=== PATIENT | female | born 1990 | race Caucasian/White ===

== ENCOUNTER 2016-10-27 13:30 | Emergency (ER) | payer OTHER ==
[2016-10-27 13:46] VITALS: BP 137/80; PULSE 104; TEMP 98.4; BMI 27.1
--- NOTE | 2016-10-27 14:54 | PDOC ---
History of Present Illness - General Chief Complaint: Allergic Reaction Stated Complaint: ALLERGIC REACTION-RASH Time Seen by Provider: 10/27/16 14:41 Past History - Past Medical History Allergies/Adverse Reactions: Allergies Allergy/AdvReac Type Severity Reaction Status Date / Time vancomycin Allergy Mild Hives Verified 10/27/16 13:38 Home Medications: Ambulatory Orders Cephalexin Monohydrate [Keflex -] 500 mg PO BID #13 capsule 10/27/16 Suicide Attempt (Hx): No Other medical history: DENIES. - Reproductive History (#): 3 Para: 2 - Psycho/Social/Smoking Cessation Hx Anxiety: Yes Suicidal Ideation: No Smoking Status: No Smoking History: Never smoked Have you smoked in the past 12 months: No Number of Cigarettes Smoked Daily: 0 Hx Alcohol Use: No Drug/Substance Use Hx: No Substance Use Type: None *Physical Exam - Vital Signs Last Vital Signs Temp Pulse Resp BP Pulse Ox 98.4 F 104 H 19 137/80 100 10/27/16 13:38 10/27/16 13:38 10/27/16 13:38 10/27/16 13:38 10/27/16 13:38 *DC/Admit/Observation/Transfer Diagnosis at time of Disposition: UTI (urinary tract infection) Qualifiers: Urinary tract infection type: acute cystitis Hematuria presence: with hematuria Qualified Code(s): N30.01 - Acute cystitis with hematuria - Discharge Dispostion Disposition: HOME Condition at time of disposition: Good Admit: No - Referrals Referrals: Haley Marquez MD [Staff Physician] - - Patient Instructions Printed Discharge Instructions: DI for Urinary Tract Infection (UTI) Additional Instructions: You have an urinary tract infection. You were prescribed Keflex. You got your first dose in the ED today. Take your second pill for today before bed. Otherwise, take the medication as prescribed. Take the entire bottle of medication even if you feel better and do not share your medication with anyone. Do not take anyone else's medication. Stop taking this medication if you experience hives, shortness of breath or feel like your throat is closing and seek medical attention. Drink plenty of fluids including cranberry juice. Follow up with your primary care doctor in one week. Return to the ED if you have worsening pain, signs of allergic reaction as listed above, fevers, chills, back pain, or any changes in your symptoms.
[2016-10-27 15:33] LABS: URINE APPEARANCE CLEAR; URINE BILIRUBIN NEGATIVE (NEGATIVE); URINE BLOOD 1+ (NEGATIVE); URINE COLOR LTYELLOW; URINE GLUCOSE (UA) NEGATIVE (NEGATIVE); URINE KETONE NEGATIVE (NEGATIVE); URINE NITRITE NEGATIVE (NEGATIVE); URINE PROTEIN NEGATIVE (NEGATIVE); URINE UROBILINOGEN NEGATIVE mg/dL (0.2-1.0)
[2016-10-27 15:35] LABS: URINE LEUK ESTERASE 1+ (NEGATIVE)
[2016-10-27 15:37] LABS: URINE MUCUS RARE; URINE RBC 3 /hpf (0-3); URINE WBC 33 /hpf (3-5)
[2016-10-27] MEDS ORDERED: diphenhydrAMINE HCL 25 MG CAPSULE (FP) PO ONE (15:57)
[2016-10-27] MEDS ORDERED: CEPHALEXIN MONOHYDRATE 500 MG CAPSULE (UD) PO ONE (15:59)
[2016-10-27] MEDS ORDERED: CEPHALEXIN MONOHYDRATE 500 MG CAPSULE (UD) ONE (16:04)
== END 2016-10-27 16:52 | disposition home or self-care (01) ==
LOC: JER 13:30 → JERFT 13:30
DX: N30.01 Acute cystitis with hematuria (principal)
CPT/HCPCS: 81003; 81015; 87086; 99281-25

== ENCOUNTER 2017-07-03 11:00 | Inpatient (IN) | payer OTHER ==
[2017-09-02] MEDS ORDERED: CITRIC ACID/SODIUM CITRATE 30 ML UNIT-DOSE CUP PO ONE (08:12)
[2017-09-02] MEDS ORDERED: ELECTROLYTE-148 SOLN 500 ML IV SCH (08:15)
[2017-09-02] MEDS: ELECTROLYTE-148 SOLN 1,000 ML IV SCH (08:40)
[2017-09-02 08:46] VITALS: BMI 30.9
--- NOTE | 2017-09-02 09:15 | HP ---
Past Medical History - Primary Care Physician PCP:: Abad Soto - Admission Chief Complaint: 39 weeks, previous c/s . request for sterlization, GDM History of Present Illness: 27 yo f , edc by sono 09/08/17 , 39.1 weeks, with 2 previous c/s, requesting repeat c/s and BTl , aware BTL is permenant and has small failure risks and risks of ectopic, ,risks of bleeding ,infection, injury to bowel and bladder , anesthesia risks discussed History Source: Patient - Past Medical History ...: 4 ...Para: 2 ...Term: 2 ...: 0 ...Spon : 1 ...Induced : 0 ...Multiple Gestation: 0 ...LMP: 11/15/15 ... Weeks Gestation by Dates: 41.5 ...EDC by Dates: 08/21/17 ...EDC by Sono: 09/08/17 Endocrine: Yes: Diabetes Mellitus (GDM, diet controlled) - Past Surgical History Past Surgical History: Yes: Hx Myomectomy: No Hx Transabdominal Cerclage: No - Smoking History Smoking history: Never smoked Have you smoked in the past 12 months: No Aproximately how many cigarettes per day: 0 - Alcohol/Substance Use Hx Alcohol Use: No - Social History Usual Living Arrangement: Yes: With Spouse History of Recent Travel: No Home Medications - Allergies Allergies/Adverse Reactions: Allergies Allergy/AdvReac Type Severity Reaction Status Date / Time vancomycin Allergy Severe Hives Verified 09/02/17 08:21 - Home Medications Home Medications: Ambulatory Orders Cephalexin Monohydrate [Keflex -] 500 mg PO BID #13 capsule 10/27/16 Review of Systems - Review of Systems Constitutional: reports: No Symptoms Eyes: reports: No Symptoms HENT: reports: No Symptoms Neck: reports: No Symptoms Cardiovascular: reports: No Symptoms Respiratory: reports: No Symptoms Gastrointestinal: reports: No Symptoms Genitourinary: reports: No Symptoms Breasts: reports: No Symptoms Reported Musculoskeletal: reports: No Symptoms Integumentary: reports: No Symptoms Neurological: reports: No Symptoms Endocrine: reports: No Symptoms Hematology/Lymphatic: reports: No Symptoms Psychiatric: reports: No Symptoms Physical Exam - Maternity Vital Signs: Vital Signs Temperature 97.7 F 09/02/17 08:30 Pulse Rate 87 09/02/17 08:30 Respiratory Rate 20 09/02/17 08:30 Blood Pressure 123/86 09/02/17 08:30 O2 Sat by Pulse Oximetry (%) Constitutional: Yes: Well Nourished, No Distress, Calm Eyes: Yes: WNL, Conjunctiva Clear, EOM Intact HENT: Yes: WNL, Atraumatic, Normocephalic Neck: Yes: WNL, Supple, Trachea Midline Cardiovascular: Yes: WNL, Regular Rate and Rhythm Breast(s): Yes: WNL - Abdominal Exam/OB Fundal Height: 40 Number of Fetuses: Single Presentation: Vertex Contractions: No Intensity: Unaware Monitor Mode: External Heart Rate Location: [facility] Category: I Accelerations: Uniform Decelerations: None - Vaginal Exam/OB Vaginal Bleediing: No Speculum Exam: No Dilatation (cm): closed Effacement (%): 0 Amniotic Membrane Status: Intact Presentation: Vertex/Position Station: -3 - Physical Exam Edema: Yes Edema: LLE: Trace, RLE: Trace Deep Tendon Reflex Grade: Normal +2 Psychiatric: Yes: WNL Hemorrhage Risk Assessment - Risk Factors Medium Risk Factors: Yes: Prior , uterine surgery,or multiple laparotomies Risk Score: 2 Risk Level: High Risk Problem List - Problems (1) with 39 completed weeks gestation Code(s): Z3A.39 - 39 WEEKS GESTATION OF (2) Previous section complicating Code(s): O34.219 - MATERNAL CARE FOR UNSP TYPE SCAR FROM PREVIOUS DEL (3) Admission for sterilization Code(s): Z30.2 - ENCOUNTER FOR STERILIZATION (4) Gestational diabetes mellitus Code(s): O24.419 - GESTATIONAL DIABETES MELLITUS IN , UNSP CONTROL Qualifiers: Gestational diabetes mellitus control: diet-controlled Trimester: third trimester Qualified Code(s): O24.410 - Gestational diabetes mellitus in , diet controlled Assessment/Plan admit for repeat c/s and BTL, risks discussed
[2017-09-02] MEDS ORDERED: ceFAZolin SODIUM 1 GM VIAL ONE ×2 (10:02→23:26)
[2017-09-02] MEDS ORDERED: morphine SULFATE/Preservative Free 0.5 MG/ML (1cc Syringe) ONE (10:03)
[2017-09-02] MEDS ORDERED: BUPIVACAINE 0.75% IN DEXTROSE/PF 2ML AMPULE NR ONE (10:03)
[2017-09-02] MEDS ORDERED: BENZOCAINE 28 GM HEMORRHOIDAL OINTMENT PR PRN (11:49)
[2017-09-02] MEDS ORDERED: oxyCODONE HCL 5 MG TABLET PO PRN ×2 (11:49)
[2017-09-02] MEDS ORDERED: IBUPROFEN 800 MG/8 ML IJ IVPB PRN (11:49)
[2017-09-02] MEDS ORDERED: diphenhydrAMINE HCL 25 MG CAPSULE (FP) PO PRN (11:49)
[2017-09-02] MEDS ORDERED: WITCH HAZEL 50% (TUCKS) 40 PAD/JAR PAD TP PRN (11:49)
[2017-09-02] MEDS ORDERED: METHYLERGONOVINE MALEATE 0.2 MG/1 ML AMP IM PRN (11:49)
[2017-09-02] MEDS ORDERED: BENZOCAINE 20% 57 GM BOTTLE TP PRN (11:49)
--- NOTE | 2017-09-02 11:52 | SURG ---
Surgery Set Up And Charger Note Set Up And Charger: Chalo Chapman PA-C Date of Service: 09/02/17 Diagnosis: repeat Cesarian section Procedure: Repeat Cesarian section and tubal ligation I was present for the entirety of the operative procedure. For further detail, please refer to operative report.
[2017-09-02] MEDS ORDERED: ONDANSETRON 4 MG/2 ML VIAL IVPUSH PRN (11:53)
[2017-09-02] MEDS ORDERED: morphine SULFATE/Preservative Free 0.5 MG/ML (1cc Syringe) SPIN ONE (11:53)
[2017-09-02] MEDS ORDERED: OXYTOCIN 20 UNITS in 0.9% NS 1,000 ML IV SCH (12:00)
--- NOTE | 2017-09-02 13:57 | OP ---
DATE OF OPERATION: 09/02/2017 PREOPERATIVE DIAGNOSES: , 39 weeks. Two previous sections. Request of repeat section and tubal ligation. POSTOPERATIVE DIAGNOSES: , 39 weeks. Two previous sections. Request of repeat section and tubal ligation. PROCEDURES: Repeat low segment, transverse section. SURGEON: Lana Soto MD PLANNING RN: , EZRA ANESTHESIA: Spinal anesthesia, ESTIMATED BLOOD LOSS: 500 mL. OPERATION: The patient was taken to the operating room and had adequate spinal anesthesia. Abdomen and perineum were prepped and draped. Pfannenstiel abdominal skin incision was made over the previous incision. Abdominal wall was cut [id number]. Anterior peritoneum was exposed and incised. Upon entering the abdominal cavity, low uterine segment was identified and uterovesical fold of peritoneum established. Bladder was pushed down. A low-transverse uterine incision was made. Incision extended laterally. Amniotic sac was entered, clear fluid. Live baby girl was delivered. Apgars 9 and 9. No complication. Placenta was delivered manually. Uterine cavity was cleaned of all remaining tissue. Uterine incision was closed in two layers, first layer with 0 Biosyn continuous suture, the second layer with 0 Biosyn imbricating the first layer. Bladder flap was closed with 0 Biosyn continuous suture. Then, right tube was grasped with a Livier clamp. Right tube was doubly tagged with 2-0 plain. Portion of tube was removed and endosalpinx cauterized. The same procedure repeated for opposite tube. No active bleeding was seen. All the lap, and sponge, and instruments were correct. Pelvic cavity several times irrigated and then peritoneum was closed with 0 Biosyn continuous suture. Muscle was brought together with interrupted suture of 0 Biosyn. Fascia was closed with 0 Biosyn continuous suture, subcutaneous fat interrupted suture of 0 Biosyn and the skin was closed with 3-0 Vicryl subcuticular continuous suture. Patient tolerated procedure well. Left the OR in good condition. LANA SOTO M.D. /[id number]
[2017-09-02] MEDS: OXYTOCIN 20 UNITS in 0.9% NS 20 UNIT/1,000 ML INFUS.BAG IV SCH (14:01)
[2017-09-02] MEDS: CEFAZOLIN 1 GM in DEXTROSE 5%-WATER - 50 ML IVPB SCH (17:32)
[2017-09-02] MEDS ORDERED: DEXTROSE 5%-WATER - 50 ML IVPB ONE (23:26)
[2017-09-03] MEDS: CEFAZOLIN 1 GM in DEXTROSE 5%-WATER - 50 ML IVPB SCH (02:18)
[2017-09-03] MEDS: SIMETHICONE 80 MG TAB.CHEW (FP) PO PRN (05:56)
[2017-09-03] MEDS: IBUPROFEN 600 MG TABLET (FP) PO PRN (05:56)
[2017-09-03] MEDS: ACETAMINOPHEN 325 MG TABLET (FP) PO PRN (05:57)
[2017-09-03 08:21] LABS: BASO % 0.3 % (0-2.0); EOS % 0.1 % (0-4.5); HEMATOCRIT 38.9 % (32.4-45.2); HEMOGLOBIN 13.5 GM/dL (10.7-15.3); MCH 33.3 pg (25.7-33.7); MCHC 34.8 g/dl (32.0-36.0); MEAN CELL VOLUME 95.7 fl (80-96); MEAN PLT VOLUME 8.2 fl (7.5-11.1); NEUT % 85.6 % (42.8-82.8); PLATELET COUNT 161 K/MM3 (134-434); RBC 4.06 M/mm3 (3.60-5.2); RDW 13.5 % (11.6-15.6); WHITE BLOOD COUNT 7.9 K/mm3 (4.0-10.0)
--- NOTE | 2017-09-03 09:09 | PN ---
Progress Note (short form) - Note Progress Note: Post op day#1.S/P C section under spinal anesthesia with duramorph uneventful.Patient stable and has little pain for which she is on medication.No any anesthesia related problem.Patient Dc from the anesthesia care.
[2017-09-03] MEDS: ENOXAPARIN NA (PORCINE) 40 MG/0.4 ML DISP.SYRIN SQ SCH (10:27)
[2017-09-03] MEDS ORDERED: BISACODYL 10 MG SUPP.RECT RC PRN (11:49)
--- NOTE | 2017-09-03 12:49 | PN ---
Progress Note (short form) - Note Progress Note: pod 1 s/p repeat c/s, btl doing well, no c/o CBC, BMP 09/03/17 08:00 Last Vital Signs Temp Pulse Resp BP Pulse Ox 97.9 F 76 20 121/71 09/03/17 09:47 09/03/17 09:47 09/03/17 09:47 09/03/17 09:47 abdomen soft, no distension, no cva incision dry, clean no calf tenderness plan ambulate, advance diet Problem List - Problems (1) with 39 completed weeks gestation Code(s): Z3A.39 - 39 WEEKS GESTATION OF (2) Previous section complicating Code(s): O34.219 - MATERNAL CARE FOR UNSP TYPE SCAR FROM PREVIOUS DEL (3) Admission for sterilization Code(s): Z30.2 - ENCOUNTER FOR STERILIZATION (4) Gestational diabetes mellitus Code(s): O24.419 - GESTATIONAL DIABETES MELLITUS IN , UNSP CONTROL Qualifiers: Gestational diabetes mellitus control: diet-controlled Trimester: third trimester Qualified Code(s): O24.410 - Gestational diabetes mellitus in , diet controlled
[2017-09-04] MEDS: ACETAMINOPHEN 325 MG TABLET (FP) PO PRN ×2 (06:11→16:38)
[2017-09-04] MEDS: IBUPROFEN 600 MG TABLET (FP) PO PRN ×2 (06:12→16:37)
[2017-09-04] MEDS: SIMETHICONE 80 MG TAB.CHEW (FP) PO PRN ×2 (06:12→16:38)
[2017-09-04] MEDS: ENOXAPARIN NA (PORCINE) 40 MG/0.4 ML DISP.SYRIN SQ SCH (09:50)
--- NOTE | 2017-09-04 15:00 | PN ---
Post Progress Note - Subjective Subjective: 27 yo Para 3 status post repeat , seen and evaluated. She's out of bed to chair. No complaints. Post Day: 2 Type of Delivery: Repeat C/S Vital Signs: Vital Signs Temperature 97.9 F 09/04/17 09:00 Pulse Rate 72 09/04/17 09:00 Respiratory Rate 20 09/04/17 09:00 Blood Pressure 125/80 09/04/17 09:00 O2 Sat by Pulse Oximetry (%) Breast Exam: Yes: Soft Uterus: Yes: Fundus Firm Incision: Yes: Dressing dry and intact Abdomen/GI: Yes: Abdomen soft, Tolerating PO Lochia: Yes: Rubra Lochia, amount: Small Extremities: Yes: Calves non-tender Perineum: Yes: Intact Activity: Ambulating - Labs Labs: CBC WBC 7.9 K/mm3 (4.0-10.0) 09/03/17 08:00 RBC 4.06 M/mm3 (3.60-5.2) 09/03/17 08:00 Hgb 13.5 GM/dL (10.7-15.3) 09/03/17 08:00 Hct 38.9 % (32.4-45.2) 09/03/17 08:00 MCV 95.7 fl (80-96) 09/03/17 08:00 MCH 33.3 pg (25.7-33.7) 09/03/17 08:00 MCHC 34.8 g/dl (32.0-36.0) 09/03/17 08:00 RDW 13.5 % (11.6-15.6) 09/03/17 08:00 Plt Count 161 K/MM3 (134-434) 09/03/17 08:00 MPV 8.2 fl (7.5-11.1) D 09/03/17 08:00 Absolute Neuts (auto) 6.7 # 09/03/17 08:00 Neutrophils % 85.6 % (42.8-82.8) H 09/03/17 08:00 Lymphocytes % 7.0 % (8-40) L D 09/03/17 08:00 Monocytes % 7.0 % (3.8-10.2) 09/03/17 08:00 Eosinophils % 0.1 % (0-4.5) 09/03/17 08:00 Basophils % 0.3 % (0-2.0) 09/03/17 08:00 Nucleated RBC % 0 % (0-0) 09/03/17 08:00 Problem List - Problems (1) Status post repeat low transverse section Code(s): Z98.891 - HISTORY OF UTERINE SCAR FROM PREVIOUS SURGERY Assessment/Plan Status post repeat Stable Ambulation Analgesia as needed Continue routine post op care
[2017-09-04] MEDS: DEXTROSE 5%-LACTATED RINGERS 1,000 ML IV SCH (20:56)
[2017-09-04] MEDS: OXYTOCIN 20 UNITS in 0.9% NS 20 UNIT/1,000 ML INFUS.BAG IV SCH (20:57)
[2017-09-04] MEDS: ELECTROLYTE-148 SOLN 1,000 ML IV SCH (20:57)
[2017-09-04] MEDS ORDERED: SENNOSIDES/DOCUSATE COMBO (SENNA PLUS) TABLET (UD) PO PRN (22:00)
[2017-09-05] MEDS: IBUPROFEN 600 MG TABLET (FP) PO PRN ×2 (05:13→18:03)
[2017-09-05] MEDS: SIMETHICONE 80 MG TAB.CHEW (FP) PO PRN ×2 (05:14→18:04)
[2017-09-05] MEDS: ACETAMINOPHEN 325 MG TABLET (FP) PO PRN ×2 (05:14→18:02)
--- NOTE | 2017-09-05 07:46 | PN ---
Progress Note (short form) - Note Progress Note: pod 3 ambulating , passing gas , has mild incisional pain Last Vital Signs Temp Pulse Resp BP Pulse Ox 97.4 F L 789 H 18 136/87 09/04/17 22:00 09/04/17 22:00 09/04/17 22:00 09/04/17 22:00 abdomen soft, no distension, no cva incison dry, clean no calf tenderness lochia mild plan cbc , for d/c home in am Problem List - Problems (1) with 39 completed weeks gestation Code(s): Z3A.39 - 39 WEEKS GESTATION OF (2) Previous section complicating Code(s): O34.219 - MATERNAL CARE FOR UNSP TYPE SCAR FROM PREVIOUS DEL (3) Admission for sterilization Code(s): Z30.2 - ENCOUNTER FOR STERILIZATION (4) Gestational diabetes mellitus Code(s): O24.419 - GESTATIONAL DIABETES MELLITUS IN , UNSP CONTROL Qualifiers: Gestational diabetes mellitus control: diet-controlled Trimester: third trimester Qualified Code(s): O24.410 - Gestational diabetes mellitus in , diet controlled
[2017-09-05 07:50] LABS: BASO % 0.3 % (0-2.0); EOS % 1.5 % (0-4.5); HEMATOCRIT 38.9 % (32.4-45.2); HEMOGLOBIN 13.7 GM/dL (10.7-15.3); LYMPH % 9.4 % (8-40); MCH 33.7 pg (25.7-33.7); MCHC 35.2 g/dl (32.0-36.0); MEAN CELL VOLUME 95.8 fl (80-96); MEAN PLT VOLUME 8.5 fl (7.5-11.1); MONO % 3.3 % (3.8-10.2); NEUT % 85.5 % (42.8-82.8); PLATELET COUNT 221 K/MM3 (134-434); RBC 4.06 M/mm3 (3.60-5.2); RDW 13.4 % (11.6-15.6); WHITE BLOOD COUNT 10.7 K/mm3 (4.0-10.0)
[2017-09-05] MEDS: ENOXAPARIN NA (PORCINE) 40 MG/0.4 ML DISP.SYRIN SQ SCH (10:08)
[2017-09-05] MEDS: BACITRACIN 15 GM TUBE TOPICAL OINTMENT TP SCH (22:02)
--- NOTE | 2017-09-06 08:00 | DS ---
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 Vital Signs: Vital Signs Temperature 98.3 F 09/05/17 22:00 Pulse Rate 76 09/05/17 22:00 Respiratory Rate 18 09/05/17 22:00 Blood Pressure 139/89 09/05/17 22:00 O2 Sat by Pulse Oximetry (%) Constitutional: Yes: Well Nourished, No Distress, Calm Eyes: Yes: WNL, Conjunctiva Clear, EOM Intact HENT: Yes: WNL, Atraumatic, Normocephalic Neck: Yes: WNL, Supple, Trachea Midline Cardiovascular: Yes: WNL, Regular Rate and Rhythm Respiratory: Yes: WNL, Regular, CTA Bilaterally Gastrointestinal: Yes: WNL ...Rectal Exam: Yes: WNL Renal/: Yes: WNL ....Post : Yes: Uterus firm, Uterus non-tender Breast(s): Yes: WNL Musculoskeletal: Yes: WNL Extremities: Yes: WNL Integumentary: Yes: WNL Wound/Incision: Yes: Clean/Dry, Well Approximated, Sutures Intact Neurological: Yes: WNL, Alert, Oriented ...Motor Strength: WNL Psychiatric: Yes: WNL, Alert, Oriented Labs: CBC, BMP 09/05/17 06:30 Delivery - Delivery Section: Repeat (no complication) Type of Anesthesia: Spinal Episiotomy/Laceration: None EBL (cc): 500 Delivery, Single - Stages of Labor Date 1st Stage Initiatied: 09/02/17 Time 1st Stage Initiated: 06:00 Date of Delivery: 09/02/17 Time of Delivery: 10:45 Time Placenta Delivered: 10:47 Placenta: Yes: Manual Removal - 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 of Infant 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 Present: Yes Name: Huey Manuel Gender: Female Weight: 7 lb 4 oz Position: Left, OT Total Hours ROM (Hrs/Mins): 1min - 1 Minute Total Score: 9 5 Minutes Total Score: 9 - [place] Feeding Plan Initial Plan: Elected not to breastfeed exclusively throughout hospitalization Discharge Summary Reason For Visit: Current Active Problems Admission for sterilization (Acute) Gestational diabetes mellitus (Acute) with 39 completed weeks gestation (Acute) Previous section complicating (Acute) Status post repeat low transverse section (Acute) Procedures: Principal: repeat c/s Other Procedures: BTL Condition: Good - Instructions Diet, Activity, Other Instructions: regular diet, no intercourse, follow up [facility] care 1 week Referrals: Abad Soto MD [Staff Physician] - Disposition: HOME - Home Medications Comprehensive Discharge Medication List: Ambulatory Orders Cephalexin Monohydrate [Keflex -] 500 mg PO BID #13 capsule 10/27/16 Ibuprofen [Motrin -] 600 mg PO QID #28 tablet 09/03/17
[2017-09-06] MEDS: ENOXAPARIN NA (PORCINE) 40 MG/0.4 ML DISP.SYRIN SQ SCH (09:42)
[2017-09-06] MEDS: BACITRACIN 15 GM TUBE TOPICAL OINTMENT TP SCH (09:43)
[2017-09-06 12:13] VITALS: BP 144/87; PULSE 86; TEMP 98.9
== END 2017-09-06 13:05 | disposition home or self-care (01) | DRG 540 ==
LOC: JLDR 09-02 07:48 → J3W 09-02 14:32
PROVIDERS: ADMIT Obstetrics & Gynecology; ATTEND Obstetrics & Gynecology
PROC: 10D00Z1 Extraction of Products of Conception, Low, Open Approach (ICD-10-PCS; principal; 2017-09-02)
PROC: 0UB70ZZ Excision of Bilateral Fallopian Tubes, Open Approach (ICD-10-PCS; 2017-09-02)
DX: O34.211 Maternal care for low transverse scar from previous cesarean delivery (principal); N85.8 Other specified noninflammatory disorders of uterus; O24.429 Gestational diabetes mellitus in childbirth, unspecified control; Z3A.39 39 weeks gestation of pregnancy; Z30.2 Encounter for sterilization; Z37.0 Single live birth
CPT/HCPCS: 36415; 82962; 85025

== ENCOUNTER 2017-09-28 12:23 | Emergency (ER) | payer OTHER ==
[2017-09-28 12:26] VITALS: BMI 27.2
--- NOTE | 2017-09-28 13:25 | PDOC ---
History of Present Illness - General Chief Complaint: Back Pain Stated Complaint: BACK PAIN Time Seen by Provider: 09/28/17 13:24 - History of Present Illness Initial Comments: 09/28/17 14:51 The patient is a 27 year old female with a history of dm who presents for evaluation of right sided flank pain. The patient reports a 3 day history of intermittent right sided flank pain that has become more persistent prompting her presentation to the ED for further evaluation. She notes some associated burning with urination and nausea, but otherwise denies fevers, chills, SOB, chest pain, vomiting, abdominal pain, or changes with urination or bowel movements. The patient has tried tylenol for her pain which as mildly improved her symptoms. Past History - Past Medical History Allergies/Adverse Reactions: Allergies Allergy/AdvReac Type Severity Reaction Status Date / Time vancomycin Allergy Severe Hives Verified 09/28/17 15:13 Home Medications: Ambulatory Orders NK [No Known Home Medication] 09/28/17 Asthma: No Cancer: No Cardiac Disorders: No COPD: No Diabetes: Yes HTN: No Seizures: No Thyroid Disease: No - Reproductive History (#): 3 Para: 2 - Suicide/Smoking/Psychosocial Hx Smoking Status: No Smoking History: Never smoked Have you smoked in the past 12 months: No Number of Cigarettes Smoked Daily: 0 Hx Alcohol Use: No Drug/Substance Use Hx: No Substance Use Type: None Hx Substance Use Treatment: No Review of Systems - Review of Systems Comments:: 09/28/17 14:55 Constitutional: No fevers, chills, fatigue, malaise HEENT: No Rhinorrhea, nasal congestion, visual changes Cardiovascular: No chest pain, syncope, palpitations, lightheadedness Respiratory: No Cough, SOB, Hemoptysis, Gastrointestinal: Nausea, No Abdominal pain, Vomiting, Constipation, Diarrhea, Melena Genitourinary: Dysuria, Right Flank Pain. No Frequency, Urgency, Hesitancy, Hematuria Musculoskeletal: No Myalgia, arthralgia Skin: No rashes, itching, bruising, pallor Neurologic: No Headache, Dizziness, Numbness, Weakness, or Tingling Psychiatric: No Hallucinations. No SI or HI *Physical Exam - Vital Signs Last Vital Signs Temp Pulse Resp BP Pulse Ox 97 F L 100 H 20 131/96 99 09/28/17 12:24 09/28/17 12:24 09/28/17 12:24 09/28/17 12:24 09/28/17 12:24 - Physical Exam Comments: 09/28/17 14:56 General Appearance: Nourished. No Apparent Distress HEENT: No Pharyngeal Erythema, Tonsillar Exudate, Tonsillar Erythema Neck: No Cervical Lymphadenopathy Respiratory/Chest: Lungs Clear, Normal Breath Sounds. No Crackles, Rales, Rhonchi, Wheezing Cardiovascular: Regular Rhythm, Regular Rate. No Murmur, Gallops, Rubs Gastrointestinal/Abdominal: Normal Bowel Sounds, Soft. No Guarding, Rebound, Tenderness Musculoskeletal: No CVA Tenderness Extremity: Normal Capillary Refill Integumentary: Normal Color, Dry, Warm Neurologic: Fully Oriented, Alert, Normal Mood/Affect, Normal Response, Medical Decision Making - Medical Decision Making 09/28/17 15:01 The patient is a 27 year old female with a history of dm who presents for evaluation of right sided flank pain. Differential includes but is not limited to: UTI, Pyelonephritis. Given the patient's history and physical exam, we will obtain a ua, urine culture, urine preg to evaluate further for possible etiologies. We will continue to monitor and reassess while here in the ED. 09/28/17 16:01 UA, urine preg are unremarkable. It is likely the patient's symptoms are musculoskeletal in nature. We are comfortable discharging the patient home with primary care provider follow up. We discussed the results, plan, and return precautions with the patient who voiced understanding and is agreeable with the plan. *DC/Admit/Observation/Transfer Diagnosis at time of Disposition: Back pain Qualifiers: Back pain location: low back pain Chronicity: unspecified Back pain laterality : right Sciatica presence: unspecified whether sciatica present Qualified Code(s ): M54.5 - Low back pain - Discharge Dispostion Disposition: HOME Condition at time of disposition: Stable Decision to Admit order: No - Referrals - Patient Instructions Printed Discharge Instructions: DI for Low Back Pain Additional Instructions: Please return to the ER if you experience concerning or worsening symptoms including worsening pain, fevers, or vomiting. Your urine results were normal here in the ER. You may use tylenol, motrin, heating packs to help manage your pain at home. Please call to schedule a follow up appointment with your primary care provider within 1 week to discuss your ER visit and further management of your symptoms. - Post Discharge Activity
--- NOTE | 2017-09-28 13:34 | PDOC ---
Attending Attestation - Resident Resident Name: Manjinder Hinkle - ED Attending Attestation I have performed the following: I have examined & evaluated the patient, The case was reviewed & discussed with the resident, I agree w/resident's findings & plan, Exceptions are as noted - HPI HPI: 09/28/17 15:51 The patient is a 27 year old female, approx 4 weeks s/p csection who presents to the emergency department with, 3 days of intermittent right sided flank pain that is sharp, lasts ~ 1 hr. She describes is as initially intermittent and now more persisetnt and nausea when she has the pain. She reports taking Tylenol, with minimal relief. Pt notes some dysuria for the past month but has been having UA at her doctor and was told it was normal. She denies recent fevers, chills, headache or dizziness. She denies recent vomit , diarrhea or constipation. She denies recent frequency, urgency or hematuria. She denies recent chest pain or shortness of breath. Allergies: Vancomycin. Past surgical history: . Social history: Nonsmoker. Denies EtOH use and recreational drug use. - Physicial Exam PE: 09/28/17 15:52 GENERAL: The patient is awake, alert, and fully oriented, Nontoxic - in no acute distress. LUNGS: Breath sounds equal, clear to auscultation bilaterally. No wheezes, no rhonchi, no rales. HEART: Regular rate and rhythm, normal S1 and S2 without murmur, rub or gallop. ABDOMEN: Soft, nontender, no rebound/guarding, +fannensteil incision c/d/i w/o discharge, induration, erythema or tenderness. , no CVA tenderness NEUROLOGICAL: No facial assymetry, Normal speech, moving all 4 extremities spontaneously and symmetrically SKIN: Warm, Dry, normal turgor,
[2017-09-28] MEDS ORDERED: ACETAMINOPHEN 325 MG TABLET (FP) PO ONE (15:12)
[2017-09-28] MEDS ORDERED: ACETAMINOPHEN 650 MG/20.3 ML ORAL SOLUTION (CUPS) ONE (15:20)
[2017-09-28 15:33] LABS: URINE APPEARANCE CLEAR; URINE BILIRUBIN NEGATIVE (<2.0 mg/dL); URINE COLOR STRAW; URINE GLUCOSE (UA) NEGATIVE (NEGATIVE); URINE KETONE 1+ (NEGATIVE); URINE LEUK ESTERASE NEGATIVE (NEGATIVE); URINE NITRITE NEGATIVE (NEGATIVE); URINE PROTEIN NEGATIVE (NEGATIVE); URINE UROBILINOGEN NEGATIVE mg/dL (0.2-1.0)
[2017-09-28 15:50] LABS: EPI CELLS RARE /HPF (FEW)
[2017-09-28 17:08] VITALS: BP 132/84; PULSE 78; TEMP 98
== END 2017-09-28 17:07 | disposition home or self-care (01) ==
LOC: JER 12:23
DX: M54.5 Low back pain (principal); E11.9 Type 2 diabetes mellitus without complications
CPT/HCPCS: 81003; 81015; 84703; 87077; 87086; 99282-25

== ENCOUNTER 2019-04-13 10:21 | Emergency (ER) | payer OTHER ==
[2019-04-13 10:39] VITALS: BP 122/86; PULSE 100; TEMP 98.7; BMI 31.8
[2019-04-13] MEDS ORDERED: IBUPROFEN 600 MG TABLET (FP) PO ONE ×2 (11:05→11:21)
[2019-04-13] MEDS ORDERED: ALBUTEROL SO4 2.5/IPRATROPIUM 0.5 INH SOL 3 ML VIAL.NEB. NEB ONE (11:05)
--- NOTE | 2019-04-13 11:22 | PDOC ---
History of Present Illness - General Chief Complaint: Sore Throat Stated Complaint: COUGH Time Seen by Provider: 04/13/19 10:44 History Source: Patient Exam Limitations: No Limitations Past History - Travel Traveled outside of the country in the last 30 days: No Close contact w/someone who was outside of country & ill: No - Past Medical History Allergies/Adverse Reactions: Allergies Allergy/AdvReac Type Severity Reaction Status Date / Time vancomycin Allergy Severe Hives Verified 04/13/19 10:35 Home Medications: Ambulatory Orders Albuterol Sulfate Inhaler - [Ventolin HFA Inhaler -] 1 - 2 inh PO Q4H #1 inhaler 04/13/19 Azithromycin [Zithromax 250mg Tablets -] 250 mg PO UTDICT #6 tab 04/13/19 Asthma: No Cancer: No Cardiac Disorders: No COPD: No Diabetes: Yes HTN: No Seizures: No Thyroid Disease: No - Reproductive History (#): 3 Para: 2 - Psycho Social/Smoking Cessation Hx Smoking Status: No Smoking History: Never smoked Have you smoked in the past 12 months: No Number of Cigarettes Smoked Daily: 0 Hx Alcohol Use: No Drug/Substance Use Hx: No Substance Use Type: None Hx Substance Use Treatment: No Review of Systems - Review of Systems Able to Perform ROS?: Yes Comments:: 04/13/19 11:21 CONSTITUTIONAL: Absent: fever, chills, diaphoresis, generalized weakness, malaise, loss of appetite HEENT: Present: sore throat Absent: rhinorrhea, nasal congestion, throat swelling, difficulty swallowing, mouth swelling, ear pain, eye pain, visual Changes CARDIOVASCULAR: Absent: chest pain, loss of consciousness, palpitations, irregular heart rate, peripheral edema RESPIRATORY: Present: cough Absent:shortness of breath, dyspnea with exertion, orthopnea, wheezing, stridor, hemoptysis GASTROINTESTINAL: Absent: abdominal pain, abdominal distension, nausea, vomiting, diarrhea, constipation, melena, hematochezia GENITOURINARY: Absent: dysuria, frequency, urgency, hesitancy, hematuria, flank pain, genital pain MUSCULOSKELETAL: Absent: myalgia, arthralgia, joint swelling SKIN: Absent: rash, itching, pallor NEUROLOGIC: Absent: headache, focal weakness or paresthesias, dizziness, unsteady gait, seizure, mental status changes, bladder or bowel incontinence PSYCHIATRIC: Absent: anxiety, depression, suicidal or homicidal ideation, hallucinations. Is the patient limited Irish proficient: No *Physical Exam - Vital Signs Last Vital Signs Temp Pulse Resp BP Pulse Ox 98.7 F 100 H 16 122/86 99 04/13/19 10:35 04/13/19 10:35 04/13/19 10:35 04/13/19 10:35 04/13/19 10:35 - Physical Exam 04/13/19 11:22 GENERAL: The patient is awake, alert, and fully oriented, in no acute distress. HEAD: Normal with no signs of trauma. EYES: Pupils equal, round and reactive to light, extraocular movements intact, sclera anicteric, conjunctiva clear. HEENT: No nasal congestion or rhinorrhea. No sinus Tenderness. Mucous membranes are moist. No tonsillar erythema, exudate or edema. Uvula is midline. No TM bulging , dullness or erythema. NECK: Neck is supple. No adenopathy. No meningismus. No stridor. EXTREMITIES: Normal range of motion, no edema. NEUROLOGICAL: Normal speech, normal gait. PSYCH: Normal mood, normal affect. SKIN: Warm, Dry, normal turgor, no rashes or lesions noted. ED Treatment Course - RADIOLOGY Radiology Studies Ordered: Category Date Time Status CHEST PA & LAT [RAD] Stat Radiology 04/13/19 11:04 Ordered - Medications Given in the ED: ED Medications Discontinued Medications Generic Name Dose Route Start Last Admin Trade Name Freq PRN Reason Stop Dose Admin Albuterol/Ipratropium 1 amp 04/13/19 11:05 04/13/19 11:20 Duoneb - NEB 04/13/19 11:06 1 amp ONCE ONE Administration Ibuprofen 600 mg 04/13/19 11:05 04/13/19 11:20 Motrin - PO 04/13/19 11:06 600 mg ONCE ONE Administration Medical Decision Making - Medical Decision Making 04/13/19 12:28 The patient is a 28 y/o with no PMH who presents to the ER for cough, congestion , sore throat and chest congestion for three weeks. She states she has been taking robitussin at home with some relief of her symptoms. She presented today because her throat was hurting and is concerned she may have strep. Denies fevers, chills, n/v/d, shortness of breath and chest pain. A/P: Cough Lungs CTAB (-) w/r/r. Nasal congestion noted. No posterior pharynx erythema. Strep negative, CXR with no acute pathology Given length of symptoms will treat with a z-pack and give an inhaler. DC home to f/u with PCP Pt understands all dc instructions and all questions were answered. Discharge - Discharge Information Problems reviewed: Yes Clinical Impression/Diagnosis: Cough Condition: Stable Disposition: HOME - Admission No - Additional Discharge Information Prescriptions: Albuterol Sulfate Inhaler - [Ventolin HFA Inhaler -] 1 - 2 inh PO Q4H #1 inhaler Azithromycin [Zithromax 250mg Tablets -] 250 mg PO UTDICT #6 tab - Follow up/Referral Referrals: Alex Vences MD [Staff Physician] - - Patient Discharge Instructions Patient Printed Discharge Instructions: DI for Cough -- Adult Additional Instructions: Your chest x-ray did not show a pneumonia, and your strep test was negative. However, since you have had symptoms for more than three weeks I will treat you with a z-pack. Take the z-pack as directed. Continue with your robitussin as you have been taking. Use the inhaler every 4 hours as needed for chest tightness Follow up with you primary care doctor this week. Return to the ER for any new or worsening symptoms. - Post Discharge Activity Work/Back to School Note: Back to Work
== END 2019-04-13 12:34 | disposition home or self-care (01) ==
LOC: JERFT 10:21
PROC: 3E0F7GC Introduction of Other Therapeutic Substance into Respiratory Tract, Via Natural or Artificial Opening (ICD-10-PCS; principal; 2019-04-13)
DX: R05 Cough (principal)
CPT/HCPCS: 71046-TC-FY; 87070; 87880; 94640; 99283-25

== ENCOUNTER 2020-03-09 10:52 | Emergency (ER) | payer OTHER | END 2020-03-09 12:19 | disposition home or self-care (01) | LOC: JVIRT 10:52 | DX: U07.1 COVID-19 (principal); J06.9 Acute upper respiratory infection, unspecified; R05 Cough | CPT/HCPCS: Q3014-GT ==

== ENCOUNTER 2020-03-10 10:22 | Inpatient (IN) | payer OTHER ==
[2020-03-10] MEDS ORDERED: LACTATED RINGERS SOLUTION 1000 ML INFUS.BAG IV STA (12:23)
[2020-03-10] MEDS ORDERED: ACETAMINOPHEN INJECTION 100 ML IVPB ONE (12:44)
[2020-03-10] MEDS: ACETAMINOPHEN 1000 MG/100 ML VIAL (NON FORMULARY) IVPB PRN ×2 (12:52→23:07)
[2020-03-10 12:55] LABS: BASO % 0.2 % (0-2.0); HEMATOCRIT 34.4 % (32.4-45.2); HEMOGLOBIN 11.8 GM/dL (10.7-15.3); LYMPH % 11.9 % (8-40); MCH 30.3 pg (25.7-33.7); MCHC 34.2 g/dl (32.0-36.0); MEAN CELL VOLUME 88.5 fl (80-96); MEAN PLT VOLUME 7.5 fl (7.5-11.1); MONO % 3.6 % (3.8-10.2); NEUT % 84.3 % (42.8-82.8); PLATELET COUNT 184 K/MM3 (134-434); RBC 3.89 M/mm3 (3.60-5.2); RDW 13.5 % (11.6-15.6); WHITE BLOOD COUNT 6.5 K/mm3 (4.0-10.0)
[2020-03-10 13:12] LABS: CHLORIDE 101 mmol/L (98-107); POTASSIUM 3.9 mmol/L (3.5-5.1); SODIUM 135 mmol/L (136-145)
[2020-03-10 13:16] LABS: BLOOD UREA NITROGEN 6.6 mg/dL (7-18); CALCIUM 8.3 mg/dL (8.5-10.1)
[2020-03-10 13:17] LABS: ALBUMIN 3.3 g/dl (3.4-5.0); ANION GAP 8 MMOL/L (8-16); CO2 26 mmol/L (21-32); GLUCOSE,RANDOM 130 mg/dL (74-106)
[2020-03-10 13:20] LABS: CREATININE 0.6 mg/dL (0.55-1.3); SGOT/AST 46 U/L (15-37); SGPT/ALT 105 U/L (13-61)
[2020-03-10 13:22] LABS: BILIRUBIN,TOTAL 0.3 mg/dL (0.2-1); LDH 330 U/L (84-246); TOT PROT 7.4 g/dl (6.4-8.2)
[2020-03-10 13:23] LABS: ALK PHOS 91 U/L (45-117)
[2020-03-10 14:57] LABS: INR 1.03 (0.83-1.09); PROTHROMBIN TIME (PATIENT) 12.4 SEC (9.7-13.0)
[2020-03-10 15:00] LABS: ACTIVATED PTT 28.9 SECONDS (25.2-36.5)
[2020-03-10 16:08] LABS: VENOUS BASE EXCESS -0.5 mmol/L (-2-2); VENOUS O2 SATURATION 84.4 % (70-80); VENOUS PCO2 36.9 mmHg (38-52); VENOUS PH 7.422 (7.310-7.410)
[2020-03-10] MEDS ORDERED: ALBUTEROL SO4 HFA INHALER IH PRN (18:24)
[2020-03-11] MEDS: DEXAMETHASONE SOD PHOSPHATE 4 MG/1 ML VIAL IVPUSH SCH (09:16)
[2020-03-11] MEDS: ENOXAPARIN NA (PORCINE) 40 MG/0.4 ML DISP.SYRIN SQ SCH (09:16)
[2020-03-11 09:44] LABS: HEMATOCRIT 33.5 % (32.4-45.2); HEMOGLOBIN 11.7 GM/dL (10.7-15.3); MCH 30.7 pg (25.7-33.7); MCHC 34.9 g/dl (32.0-36.0); MEAN PLT VOLUME 7.5 fl (7.5-11.1); PLATELET COUNT 218 K/MM3 (134-434); RBC 3.81 M/mm3 (3.60-5.2); RDW 13.7 % (11.6-15.6); WHITE BLOOD COUNT 7.4 K/mm3 (4.0-10.0)
[2020-03-11 10:00] LABS: BLOOD UREA NITROGEN 6.4 mg/dL (7-18); CALCIUM 8.6 mg/dL (8.5-10.1)
[2020-03-11 10:02] LABS: CREATININE 0.5 mg/dL (0.55-1.3)
[2020-03-11 10:04] LABS: BILIRUBIN,TOTAL 0.4 mg/dL (0.2-1); PHOSPHOROUS 2.9 mg/dL (2.5-4.9)
[2020-03-11] MEDS ORDERED: REMDESIVIR 200 MG in SODIUM CHLORIDE 210 ML IVPB ONE (11:00)
[2020-03-11 11:27] VITALS: BMI 36.1
[2020-03-11 13:47] LABS: URINE APPEARANCE CLEAR; URINE BILIRUBIN NEGATIVE (NEGATIVE); URINE COLOR YELLOW; URINE GLUCOSE (UA) NEGATIVE (NEGATIVE); URINE KETONE 1+ (NEGATIVE); URINE LEUK ESTERASE NEGATIVE (NEGATIVE); URINE NITRITE NEGATIVE (NEGATIVE); URINE PROTEIN TRACE (NEGATIVE)
[2020-03-11] MEDS ORDERED: ACETAMINOPHEN 500 MG TABLET (FP) PO PRN (16:17)
[2020-03-12] MEDS ORDERED: guaiFENesin 200 MG/10 ML 10 ML UNIT-DOSE CUPS PO ONE (02:03)
[2020-03-12] MEDS: ENOXAPARIN NA (PORCINE) 40 MG/0.4 ML DISP.SYRIN SQ SCH (09:49)
[2020-03-12] MEDS: REMDESIVIR 100 MG in SODIUM CHLORIDE 230 ML IVPB SCH (09:49)
[2020-03-12] MEDS: DEXAMETHASONE SOD PHOSPHATE 4 MG/1 ML VIAL IVPUSH SCH (09:50)
[2020-03-12 10:30] LABS: EOS % 0.1 % (0-4.5); HEMATOCRIT 32.7 % (32.4-45.2); HEMOGLOBIN 11.4 GM/dL (10.7-15.3); LYMPH % 29.8 % (8-40); MCH 30.6 pg (25.7-33.7); MCHC 34.8 g/dl (32.0-36.0); MEAN CELL VOLUME 87.7 fl (80-96); MEAN PLT VOLUME 7.3 fl (7.5-11.1); MONO % 9.6 % (3.8-10.2); NEUT % 60.5 % (42.8-82.8); PLATELET COUNT 289 K/MM3 (134-434); RBC 3.73 M/mm3 (3.60-5.2); RDW 13.9 % (11.6-15.6); WHITE BLOOD COUNT 4.4 K/mm3 (4.0-10.0)
[2020-03-12 10:49] LABS: POTASSIUM 3.9 mmol/L (3.5-5.1)
[2020-03-12 11:03] LABS: BLOOD UREA NITROGEN 14.2 mg/dL (7-18); CALCIUM 8.8 mg/dL (8.5-10.1); CREATININE 0.6 mg/dL (0.55-1.3); MAGNESIUM 1.9 mg/dL (1.8-2.4)
[2020-03-12 11:04] LABS: BILIRUBIN,TOTAL 0.4 mg/dL (0.2-1); TOT PROT 6.9 g/dl (6.4-8.2)
[2020-03-13] MEDS ORDERED: guaiFENesin 200 MG/10 ML 10 ML UNIT-DOSE CUPS PO ONE (00:16)
[2020-03-13 10:03] LABS: HEMATOCRIT 33.3 % (32.4-45.2); HEMOGLOBIN 11.7 GM/dL (10.7-15.3); MCH 30.6 pg (25.7-33.7); MCHC 35.1 g/dl (32.0-36.0); MEAN CELL VOLUME 87.3 fl (80-96); MEAN PLT VOLUME 7.1 fl (7.5-11.1); PLATELET COUNT 354 K/MM3 (134-434); RBC 3.82 M/mm3 (3.60-5.2); RDW 13.5 % (11.6-15.6); WHITE BLOOD COUNT 5.2 K/mm3 (4.0-10.0)
[2020-03-13] MEDS: REMDESIVIR 100 MG in SODIUM CHLORIDE 230 ML IVPB SCH (10:16)
[2020-03-13] MEDS: DEXAMETHASONE SOD PHOSPHATE 4 MG/1 ML VIAL IVPUSH SCH (10:16)
[2020-03-13 10:19] LABS: POTASSIUM 3.8 mmol/L (3.5-5.1)
[2020-03-13 10:20] LABS: CALCIUM 9.1 mg/dL (8.5-10.1)
[2020-03-13 10:21] LABS: BLOOD UREA NITROGEN 17.4 mg/dL (7-18)
[2020-03-13 10:24] LABS: CREATININE 0.6 mg/dL (0.55-1.3)
[2020-03-13] MEDS: ENOXAPARIN NA (PORCINE) 40 MG/0.4 ML DISP.SYRIN SQ SCH (10:47)
[2020-03-13] MEDS: ASCORBIC ACID 500 MG TABLET (FP) PO SCH ×3 (13:53→21:06)
[2020-03-13] MEDS: ZINC SULFATE 220 MG CAPSULE (FP) PO SCH (13:53)
[2020-03-13] MEDS: CHOLECALCIFEROL (VIT D3) 1,000 UNIT (25 MCG) TABLET PO SCH (13:53)
[2020-03-13] MEDS: ENOXAPARIN NA (PORCINE) 80 MG/0.8 ML DISP.SYRIN SQ SCH ×2 (20:50→21:06)
[2020-03-13] MEDS: FAMOTIDINE 20 MG TABLET PO SCH (21:06)
[2020-03-14 09:07] LABS: HEMATOCRIT 35.7 % (32.4-45.2); HEMOGLOBIN 12.6 GM/dL (10.7-15.3); MCH 30.6 pg (25.7-33.7); MCHC 35.4 g/dl (32.0-36.0); MEAN CELL VOLUME 86.5 fl (80-96); MEAN PLT VOLUME 7.1 fl (7.5-11.1); PLATELET COUNT 432 K/MM3 (134-434); RBC 4.12 M/mm3 (3.60-5.2); RDW 13.4 % (11.6-15.6); WHITE BLOOD COUNT 6.1 K/mm3 (4.0-10.0)
[2020-03-14] MEDS ORDERED: PT OWN MED DRAWER 7, Y5N ONE (09:13)
[2020-03-14] MEDS: DEXAMETHASONE SOD PHOSPHATE 4 MG/1 ML VIAL IVPUSH SCH (09:31)
[2020-03-14] MEDS: CHOLECALCIFEROL (VIT D3) 1,000 UNIT (25 MCG) TABLET PO SCH (09:31)
[2020-03-14] MEDS: ENOXAPARIN NA (PORCINE) 80 MG/0.8 ML DISP.SYRIN SQ SCH (09:31)
[2020-03-14] MEDS: ZINC SULFATE 220 MG CAPSULE (FP) PO SCH (09:31)
[2020-03-14] MEDS: ASCORBIC ACID 500 MG TABLET (FP) PO SCH (09:31)
[2020-03-14 09:32] LABS: POTASSIUM 3.9 mmol/L (3.5-5.1)
[2020-03-14] MEDS: FAMOTIDINE 20 MG TABLET PO SCH (09:32)
[2020-03-14 09:37] LABS: ALBUMIN 3.2 g/dl (3.4-5.0)
[2020-03-14 09:41] LABS: CREATININE 0.6 mg/dL (0.55-1.3)
[2020-03-14 09:43] LABS: TOT PROT 7.1 g/dl (6.4-8.2)
[2020-03-14 09:47] LABS: MAGNESIUM 2.2 mg/dL (1.8-2.4)
[2020-03-14 09:48] LABS: CALCIUM 9.3 mg/dL (8.5-10.1)
[2020-03-14 09:52] LABS: PHOSPHOROUS 4.2 mg/dL (2.5-4.9)
[2020-03-14 09:53] LABS: BILIRUBIN,TOTAL 0.5 mg/dL (0.2-1)
[2020-03-14] MEDS: REMDESIVIR 100 MG in SODIUM CHLORIDE 230 ML IVPB SCH (10:32)
[2020-03-14 11:06] LABS: ERYTHROCYTE SEDIMENTATION RATE 62 mm/hr (0-20)
[2020-03-14 14:45] VITALS: BP 134/85; PULSE 97; TEMP 97.9
== END 2020-03-14 17:12 | disposition home or self-care (01) | DRG 137 ==
LOC: JER 10:22 → JERBED 16:20 → J8W 19:05
PROVIDERS: ADMIT Internal Medicine; ATTEND Internal Medicine
PROC: 8E0ZXY6 Isolation (ICD-10-PCS; 2020-03-10)
PROC: XW033E5 Introduction of Remdesivir Anti-infective into Peripheral Vein, Percutaneous Approach, New Technology Group 5 (ICD-10-PCS; principal; 2020-03-11)
DX: U07.1 COVID-19 (principal); E66.9 Obesity, unspecified; Z68.36 Body mass index [BMI] 36.0-36.9, adult; J12.82 Pneumonia due to coronavirus disease 2019; J96.01 Acute respiratory failure with hypoxia; E78.5 Hyperlipidemia, unspecified; E11.9 Type 2 diabetes mellitus without complications
CPT/HCPCS: 36415; 71045-TC-FY; 80048; 80053; 80061; 81003; 82550; 82728; 82803; 83036; 83605; 83615; 83721; 83735; 84100; 84484; 84703; 85025; 85027; 85379; 85610; 85651; 85730; 86140; 86769; 86850; 86900; 86901; 87040; 87086; 87186; 87804; 93005; 93010; 99285-25; C9399; C9803; J0131; U0003